=== PATIENT | female | born 1990 | race Two or more races ===

== ENCOUNTER 2021-06-16 15:30 | Emergency (ER) | payer OTHER ==
[~2021-06-16] VITALS: Ht 152.4 cm; Wt 59.2 kg
[2021-06-16 15:50] VITALS: BP 153/86
[2021-06-16] MEDS ORDERED: HYDR-636 PO (17:33)
[2021-06-16 17:42] VITALS: BP 153/86
== END 2021-06-16 17:42 | disposition home or self-care (01) ==
LOC: MED 15:30
DX: F41.9 Anxiety disorder, unspecified (principal); G47.00 Insomnia, unspecified
CPT/HCPCS: 71045; 81025; 93005; 99283